=== PATIENT | male | born 1970 | race Caucasian/White ===

== ENCOUNTER 2019-03-16 16:49 | Emergency (ER) | payer BC ==
[2019-03-16] MEDS ORDERED: Sodium Chloride 0.9% 1,000 ML IV ONE (17:30)
[2019-03-16] MEDS ORDERED: HYDROmorphone 1 MG/ML Syringe IVPUSH ONE ×2 (17:30→20:07)
[2019-03-16 17:56] LABS: CHLORIDE,CL 104 mmol/L (101-111); SODIUM,NA 137 mmol/L (135-145)
--- NOTE | 2019-03-16 18:53 | EDM.PDOC ---
Scribed by Yolanda Frankel 03/16/19 [id number] for See Wallis PA <See Wallis - Last Filed: 03/16/19 18:53> ED HPI GENERAL MEDICAL PROBLEM - General Chief Complaint: Gastrointestinal Problem Stated Complaint: ABDOMINAL PAIN Time Seen by Provider: 03/16/19 21:23 Source of Information: Reports: Patient, RN, RN Notes Reviewed History Limitations: Reports: No Limitations - History of Present Illness INITIAL COMMENTS - FREE TEXT/NARRATIVE: Patient is a 48-year-old male patient with lower abdominal pain. No meds. In the patient he has had pain meds but does not know which ones. His last visit 2- 3 months ago. Onset: Today Duration: Constant Location: Reports: Abdomen Quality: Reports: Ache Severity: Severe Improves with: Reports: None Worsens with: Reports: None Associated Symptoms: Reports: No Other Symptoms Lower Abdominal Pain Score (Numeric/FACES): 10 - Related Data Allergies Allergy/AdvReac Type Severity Reaction Status Date / Time No Known Allergies Allergy Verified 03/16/19 17:17 Home Meds: Home Meds . [No Known Home Meds] 03/16/19 [History] ED ROS GENERAL - Review of Systems Review Of Systems: ROS reveals no pertinent complaints other than HPI. ED EXAM, GI/ABD - Physical Exam Exam: See Below Exam Limited By: No Limitations General Appearance: Alert, WD/WN, No Apparent Distress Eyes: Bilateral: Normal Appearance Ears: Normal External Exam, Normal Canal, Hearing Grossly Normal, Normal TMs Nose: Normal Inspection, Normal Mucosa, No Blood Throat/Mouth: Normal Inspection, Normal Lips, Normal Teeth, Normal Gums, Normal Oropharynx, Normal Voice, No Airway Compromise Head: Atraumatic, Normocephalic Neck: Normal Inspection, Supple, Non-Tender, Full Range of Motion Respiratory/Chest: No Respiratory Distress, Lungs Clear, Normal Breath Sounds, No Accessory Muscle Use, Chest Non-Tender Cardiovascular: Normal Peripheral Pulses, Regular Rate, Rhythm, No Edema, No Gallop, No JVD, No Murmur, No Rub GI/Abdominal Exam: Other (diffuse abdominal cramping. He has increased pain lower abdomen to right groin. He also has increased with defication and urination. ) (Male) Exam: Deferred Rectal (Males) Exam: Deferred Back Exam: Normal Inspection, Full Range of Motion, NT Extremities: Normal Inspection, Normal Range of Motion, Non-Tender, Normal Capillary Refill, No Pedal Edema Neurological: Alert, Oriented, CN II-XII Intact, Normal Cognition, Normal Gait, Normal Reflexes, No Motor/Sensory Deficits Psychiatric: Normal Affect, Normal Mood Skin Exam: Warm, Dry, Intact, Normal Color, No Rash Lymphatic: No Adenopathy Course - Vital Signs Last Recorded V/S: Last Vital Signs Temp 37.2 C 03/16/19 20:05 Pulse 96 03/16/19 20:05 Resp 16 03/16/19 20:05 BP 143/88 H 03/16/19 20:05 Pulse Ox 100 03/16/19 20:05 - Orders/Labs/Meds Orders: Active Orders 24 hr Category Date Time Status CULTURE BLOOD [BC] Stat Lab 03/16/19 21:18 Ordered Piperacillin/Tazobactam [Zosyn] 3.375 gm Med 03/16/19 21:19 Ordered Sodium Chloride 0.9% [Normal Saline] 100 ml IV ONETIME Medication Orders Piperacillin Sod/Tazobactam (Sod 3.375 gm/ Sodium Chloride) 100 mls @ 200 mls/ hr IV ONETIME ONE Stop: 03/16/19 21:48 Labs: Laboratory Tests 03/16/19 03/16/19 03/16/19 Range/Units 17:23 17:23 17:23 WBC 8.9 (5.0-10.0) 10^3/uL RBC 5.23 (4.6-6.2) 10^6/uL Hgb 16.9 (14.0-18.0) g/dL Hct 46.6 (40.0-54.0) % MCV 89.1 (80-100) fL MCH 32.3 (27.0-34.0) pg MCHC 36.3 H (33.0-35.0) g/dL Plt Count 178 (150-450) 10^3/uL Neut % (Auto) 76.7 H (42.2-75.2) % Lymph % (Auto) 14.4 L (20.5-50.1) % Ware % (Auto) 7.6 (2-8) % Eos % (Auto) 1.1 (1.0-3.0) % Baso % (Auto) 0.2 (0.0-1.0) % Sodium 137 (135-145) mmol/L Potassium 4.0 (3.6-5.0) mmol/L Chloride 104 (101-111) mmol/L Carbon Dioxide 22.0 (21.0-31.0) mmol/L Anion Gap 15.0 BUN 20 H (7-18) mg/dL Creatinine 1.1 (0.6-1.3) mg/dL Est Cr Clr Drug Dosing 93.82 mL/min Estimated GFR (MDRD) > 60 BUN/Creatinine Ratio 18.18 Glucose 119 H (74-105) mg/dL Calcium 8.7 (8.4-10.2) mg/dl Magnesium 2.1 (1.8-2.5) mg/dL Total Bilirubin 1.1 H (0.2-1.0) mg/dL AST 22 (10-42) IU/L ALT 22 (10-60) IU/L Alkaline Phosphatase 68 (42-121) IU/L Total Protein 6.7 (6.7-8.2) g/dl Albumin 4.0 (3.2-5.5) g/dl Globulin 2.7 Albumin/Globulin Ratio 1.48 Amylase 47 (28-100) U/L Lipase 34 (22-51) U/L Urine Color (YELLOW) Urine Appearance (CLEAR) Urine pH (5.0-9.0) Ur Specific Gardner (1.005-1.030) Urine Protein (NEGATIVE) Urine Glucose (UA) (NEGATIVE) Urine Ketones (NEGATIVE) Urine Occult Blood (NEGATIVE) Urine Nitrite (NEGATIVE) Urine Bilirubin (NEGATIVE) Urine Urobilinogen (0.2-1.0) mg/dL Ur Leukocyte Esterase (NEGATIVE) Urine Opiates Screen (NEGATIVE) Ur Oxycodone Screen (NEGATIVE) Urine Methadone Screen (NEGATIVE) Ur Barbiturates Screen (NEGATIVE) U Tricyclic Antidepress (NEGATIVE) Ur Phencyclidine Scrn (NEGATIVE) Ur Amphetamine Screen (NEGATIVE) U Methamphetamines Scrn (NEGATIVE) Urine MDMA Screen (NEGATIVE) U Benzodiazepines Scrn (NEGATIVE) Urine Cocaine Screen (NEGATIVE) U Marijuana (THC) Screen (NEGATIVE) 03/16/19 03/16/19 Range/Units 18:58 18:58 WBC (5.0-10.0) 10^3/uL RBC (4.6-6.2) 10^6/uL Hgb (14.0-18.0) g/dL Hct (40.0-54.0) % MCV (80-100) fL MCH (27.0-34.0) pg MCHC (33.0-35.0) g/dL Plt Count (150-450) 10^3/uL Neut % (Auto) (42.2-75.2) % Lymph % (Auto) (20.5-50.1) % Ware % (Auto) (2-8) % Eos % (Auto) (1.0-3.0) % Baso % (Auto) (0.0-1.0) % Sodium (135-145) mmol/L Potassium (3.6-5.0) mmol/L Chloride (101-111) mmol/L Carbon Dioxide (21.0-31.0) mmol/L Anion Gap BUN (7-18) mg/dL Creatinine (0.6-1.3) mg/dL Est Cr Clr Drug Dosing mL/min Estimated GFR (MDRD) BUN/Creatinine Ratio Glucose (74-105) mg/dL Calcium (8.4-10.2) mg/dl Magnesium (1.8-2.5) mg/dL Total Bilirubin (0.2-1.0) mg/dL AST (10-42) IU/L ALT (10-60) IU/L Alkaline Phosphatase (42-121) IU/L Total Protein (6.7-8.2) g/dl Albumin (3.2-5.5) g/dl Globulin Albumin/Globulin Ratio Amylase (28-100) U/L Lipase (22-51) U/L Urine Color Yellow (YELLOW) Urine Appearance Clear (CLEAR) Urine pH 6.0 (5.0-9.0) Ur Specific Gardner 1.025 (1.005-1.030) Urine Protein Negative (NEGATIVE) Urine Glucose (UA) Negative (NEGATIVE) Urine Ketones Negative (NEGATIVE) Urine Occult Blood Negative (NEGATIVE) Urine Nitrite Negative (NEGATIVE) Urine Bilirubin Negative (NEGATIVE) Urine Urobilinogen 0.2 (0.2-1.0) mg/dL Ur Leukocyte Esterase Negative (NEGATIVE) Urine Opiates Screen Positive H (NEGATIVE) Ur Oxycodone Screen Negative (NEGATIVE) Urine Methadone Screen Negative (NEGATIVE) Ur Barbiturates Screen Negative (NEGATIVE) U Tricyclic Antidepress Negative (NEGATIVE) Ur Phencyclidine Scrn Negative (NEGATIVE) Ur Amphetamine Screen Negative (NEGATIVE) U Methamphetamines Scrn Negative (NEGATIVE) Urine MDMA Screen Negative (NEGATIVE) U Benzodiazepines Scrn Negative (NEGATIVE) Urine Cocaine Screen Negative (NEGATIVE) U Marijuana (THC) Screen Negative (NEGATIVE) Meds: Medications Generic Name Dose Route Start Last Admin Trade Name Freq PRN Reason Stop Dose Admin Piperacillin Sod/Tazobactam 100 mls @ 200 mls/hr 03/16/19 21:19 Sod 3.375 gm/ Sodium Chloride IV 03/16/19 21:48 ONETIME ONE Discontinued Medications Generic Name Dose Route Start Last Admin Trade Name Freq PRN Reason Stop Dose Admin Hydromorphone HCl 0.5 mg 03/16/19 17:30 03/16/19 17:36 Dilaudid IVPUSH 03/16/19 17:31 0.5 mg ONETIME ONE Administration Hydromorphone HCl 0.5 mg 03/16/19 20:07 03/16/19 20:14 Dilaudid IVPUSH 03/16/19 20:08 0.5 mg ONETIME ONE Administration Sodium Chloride 1,000 mls @ 999 mls/hr 03/16/19 17:30 03/16/19 17:35 Normal Saline IV 03/16/19 18:30 999 mls/hr .BOLUS ONE Administration Iopamidol 100 ml 03/16/19 19:11 03/16/19 19:40 Isovue-300 (61%) IVPUSH 03/16/19 19:12 100 ml ONETIME ONE Administration Departure - Departure Disposition: DC/Tfer to [facility] 02 Clinical Impression: Pneumoperitoneum - Discharge Information Forms: Interfacility Transfer EMTALA - My Orders Last 24 Hours: My Active Orders 03/16/19 21:18 CULTURE BLOOD [BC] Stat 03/16/19 21:19 Piperacillin/Tazobactam [Zosyn] 3.375 gm Sodium Chloride 0.9% [Normal Saline] 100 ml IV ONETIME - Assessment/Plan Last 24 Hours: My Active Orders 03/16/19 21:18 CULTURE BLOOD [BC] Stat 03/16/19 21:19 Piperacillin/Tazobactam [Zosyn] 3.375 gm Sodium Chloride 0.9% [Normal Saline] 100 ml IV ONETIME <Phillip Storey - Last Filed: 03/16/19 21:23> ED ROS GENERAL - Review of Systems Review Of Systems: ROS reveals no pertinent complaints other than HPI. Course - Re-Assessments/Exams Free Text/Narrative Re-Assessment/Exam: 03/16/19 19:12 results discussed with pt who is still quite uncomfortable but better. abd shows generalized guarding with some rebound tenderness. BS active. did eat @ 2pm and pain started after that, denies V/D, states almost feels like gas pain. 03/16/19 21:[address] Mcclellan @ who kindly accepted pt for Dr Craft surgeon. Departure - Departure Time of Disposition: 21:21 Condition: Fair I have read and agree with the documentation that has been completed regarding this visit. By signing this record, I attest that the documentation was completed in my physical presence and is an accurate record of the encounter.
[2019-03-16] MEDS ORDERED: Iopamidol 612 MG/ML 100 ML Bottle IVPUSH ONE (19:11)
[2019-03-16] MEDS ORDERED: Piperacillin/Tazobactam 3.375 GM in Sodium Chloride 0.9% 100 ML IV ONE (21:19)
[2019-03-16] MEDS ORDERED: Acetaminophen 325 MG Tab PO ONE (21:40)
== END 2019-03-16 22:25 ==
LOC: DL.ED 16:49
DX: K66.8 Other specified disorders of peritoneum (principal)
CPT/HCPCS: 36415; 74177; 80053; 80305; 81003; 82150; 83690; 83735; 85025; 87040; 96365; 96366; 96368; 96375; 96376; 99285; A9270; J1170; J2543; J7030; J7050; Q9967

== ENCOUNTER 2024-03-02 23:22 | Emergency (ER) | payer BC ==
[2024-03-02] MEDS: Famotidine 20 MG/2 ML SDV IVPUSH ONE (23:51)
[2024-03-02] MEDS: Dexamethasone 4 MG/ML SDV IVPUSH ONE (23:51)
[2024-03-02] MEDS: Sodium Chloride 0.9% 1,000 ML IV ONE (23:58)
[2024-03-03 00:33] LABS: BASOPHILS PERCENT AUTO 0.1 % (0.0-1.0); EOSINOPHILS PERCENT AUTO 0.5 % (1.0-3.0); HEMATOCRIT 36.2 % (40.0-54.0); HEMOGLOBIN 12.7 g/dL (14.0-18.0); LYMPHOCYTES PERCENT AUTO 19.7 % (20.5-50.1); MEAN CORPUSCULAR HEMOGLOBIN 32.5 pg (27.0-34.0); MEAN CORPUSCULAR HGB CONC 35.1 g/dL (33.0-35.0); MEAN CORPUSCULAR VOLUME 92.6 fL (80-100); MONOCYTES PERCENT AUTO 5.2 % (2-8); NEUTROPHILS PERCENT AUTO 74.5 % (42.2-75.2); PLATELET COUNT,PLT 133 10^3/uL (150-450); RED BLOOD CELL COUNT 3.91 10^6/uL (4.6-6.2); WHITE BLOOD CELL COUNT,WBC 9.4 10^3/uL (5.0-10.0)
[2024-03-03 00:55] LABS: ALBUMIN 3.3 g/dL (3.4-5.0); ANION GAP 10.1 mEq/L (7-13); BILIRUBIN TOTAL 0.8 mg/dL (0.2-1.0); BUN/CREATININE RATIO 25.7 (No establ ref range); CALCIUM 8.1 mg/dL (8.5-10.1); CREATININE 1.09 mg/dL (0.70-1.30); EST CRCL DRUG DOSING (CG) 89.59 mL/min; POTASSIUM,K 4.1 mmol/L (3.5-5.1); PROTEIN TOTAL,TP 5.8 g/dL (6.4-8.2)
[2024-03-03 00:57] LABS: A/G RATIO 1.32
== END 2024-03-03 01:31 | disposition home or self-care (01) ==
LOC: DL.ED 23:22
DX: T78.49XA Other allergy, initial encounter (principal); Z79.899 Other long term (current) drug therapy
CPT/HCPCS: 36415; 80053; 84484; 85025; 93010; 96361; 96374; 96375; 99283; 99284; J1100; J3490; J7030